=== PATIENT | male | born 1955 | race Caucasian/White ===

== ENCOUNTER 2023-10-23 08:45 | Inpatient (IN) | payer MEDICARE, MEDICAID ==
[~2023-10-23] VITALS: Ht 190.5 cm; Wt 103.6 kg
[~2023-10-23 08:45] MED LIST: AZIL1TAB2 PO; GEMF600T89 PO; HYDR-3972 PO; NEBI20TA4 PO; NIFE90TA61 PO
[2023-11-03 14:02] LABS: BASOPHILS % (AUTO) 0.6 % (0-1); EOSINOPHILS # (AUTO) 0.2 X10'3 (0-0.9); EOSINOPHILS % (AUTO) 1.8 % (0-6); LYMPHOCYTES # (AUTO) 1.4 X10'3 (1.1-4.8); LYMPHOCYTES % (AUTO) 16.6 % (21-51); MEAN CORPUSCULAR HEMOGLOBIN 27.3 PG (27.0-31.0); MEAN CORPUSCULAR HGB CONC 32.9 g/dL (33.0-36.5); MONOCYTES # (AUTO) 0.7 X10'3 (0-0.9); MONOCYTES % (AUTO) 8.9 % (2-12); NEUTROPHILS % (AUTO) 72.1 % (42-75); PRE OP HEMATOCRIT 49.2 % (42.0-52.0); PRE OP HEMOGLOBIN 16.2 g/dL (14.0-17.9); PRE OP PLATELET COUNT 364 X10'3 (140-440); PRE OP WHITE BLOOD COUNT 8.3 10'3 (4.8-10.8); RED BLOOD COUNT 5.93 X10'6 (4.70-6.10); RED CELL DISTRIBUTION WIDTH 15.1 % (11.5-14.5)
[2023-11-03] MEDS ORDERED: ALLO100T PO (14:06)
[2023-11-03] MEDS ORDERED: ADV50500 IH (14:06)
[2023-11-03] MEDS ORDERED: EMPA25TA PO (14:06)
[2023-11-03] MEDS ORDERED: [UNRECOGNIZED DRUG - OTHER] PO (14:06)
[2023-11-03 14:16] LABS: ALBUMIN 4.1 G/DL (3.4-5.0); ALKALINE PHOSPHATASE 154 IU/L (46-116); BLOOD UREA NITROGEN 32 MG/DL (7-18); BUN/CREATININE RATIO 35.6 (10.0-20.0); CALCIUM 9.3 MG/DL (8.5-10.1); CHLORIDE 104 MMOL/L (99-107); PRE OP ALT 35 U/L (30-65); PRE OP ANION GAP 8 (8-16); PRE OP AST 18 U/L (10-37); PRE OP BILIRUB, TOTAL 0.8 MG/DL (0.0-1.0); PRE OP GLUCOSE 133 MG/DL (70-104); PRE OP POTASSIUM 3.7 MMOL/L (3.4-5.1); PRE OP SODIUM 141 MMOL/L (135-145); TOTAL CARBON DIOXIDE 28.8 MMOL/L (24-32); TOTAL PROTEIN 8.1 G/DL (6.4-8.2); eGFR 84 ML/MIN
[2023-11-16] MEDS ORDERED: FEXO-310 PO (11:28)
[2023-11-16] MEDS ORDERED: ATOR10TA70 PO (11:28)
[2023-11-16] MEDS ORDERED: TIZA4CAP6 PO (11:28)
[2023-11-16] MEDS: DOCUMENT DATE & TIME OF BETA-BLOCKER PO ONE (21:00)
[2023-11-17] VITALS (36 sets, daily range): BP systolic 103–135; BP diastolic 58–80; PULSE 63–79; RESP 13–22; TEMP 97.1–97.9; O2SAT 91–98
[2023-11-17] MEDS: cefazolin 2gm/D5W 100mL 100 ML IV ONE (05:30)
[2023-11-17] MEDS: famotidine 20mg tablet PO ONE (08:40)
[2023-11-17] MEDS: tranexamic acid 650mg tablet PO ONE (08:41)
[2023-11-17] MEDS: vancomycin/NS 1 GM in NS 250 ML IV ONE (08:42)
[2023-11-17] MEDS: ringers solution, lacted 1,000 ML IV SCH ×2 (08:42→20:03)
[2023-11-17] MEDS: ROPIVAcaine 0.5% (5mg/ml) 30ml vial ONE (12:32)
[2023-11-17] MEDS: ketorolac trometh. 30mg/ml inj. ONE (12:32)
[2023-11-17] MEDS: HYDROcodone/acetaminophen 10/325mg tab PO ONE (12:49)
[2023-11-17] MEDS ORDERED: fentaNYL/PF 50MCG/1 ML 2ML syringe ONE ×3 (13:34→15:13)
[2023-11-17] MEDS ORDERED: midazolam 1 mg/ML 2ml injection ONE (13:35)
[2023-11-17] MEDS ORDERED: propofol inj 20 ML IV ONE (13:43)
[2023-11-17] MEDS ORDERED: LIDOcaine 2% (20mg/ml) 5ml vial ONE (13:43)
[2023-11-17] MEDS ORDERED: ondansetron/PF 4mg/2ml inj ONE (14:12)
[2023-11-17] MEDS ORDERED: acetaminophen 1,000mg/100ml IV 100 ML IV ONE (14:14)
[2023-11-17] MEDS ORDERED: labetalol 20mg/4ml (5mg/ml) syringe IV PRN (14:40)
[2023-11-17] MEDS ORDERED: fentaNYL/PF 50MCG/1 ML 2ML syringe IV PRN (14:40)
[2023-11-17] MEDS ORDERED: hydrALAZINE 20mg/ml inj. IV PRN (14:40)
[2023-11-17] MEDS ORDERED: ondansetron/PF 4mg/2ml inj IV PRN ×2 (14:40→15:40)
[2023-11-17] MEDS ORDERED: morphine 2 MG/ML inj. syringe IV PRN (14:40)
[2023-11-17] MEDS: BUPIVAcaine/PF 2.5 mg/ml (0.25%) 30ml vial IJ ONE (14:48)
[2023-11-17] MEDS ORDERED: MIDAZolam 1 MG/ML 5ML VIAL ONE (15:13)
[2023-11-17] MEDS ORDERED: magnesium hydroxide 30ml (MOM) UD suspension PO PRN (15:40)
[2023-11-17] MEDS ORDERED: diphenhydrAMINE 25mg capsule PO PRN (15:40)
[2023-11-17] MEDS ORDERED: bisacodyl 10mg suppository rectal RC PRN (15:40)
[2023-11-17] MEDS ORDERED: acetaminophen 325mg tablet PO PRN (15:40)
[2023-11-17] MEDS ORDERED: ceFAZolin/D5W- 1GM premix 50 ML IV SCH (16:00)
[2023-11-17] MEDS: morphine 4 MG/ML inj SYRINge IV PRN (16:05)
[2023-11-17] MEDS: fentaNYL/PF 50MCG/1 ML 2ML syringe IV PRN (16:30)
[2023-11-17] MEDS: ROPIVAcaine 0.2%/PF PUMP/bolus 545 ML INTERSCALE SCH (16:32)
[2023-11-17] MEDS: ROPIVAcaine 0.2% (10 MG/5 ML) BOLUS INJECTION INTERSCALE PRN (16:32)
[2023-11-17] MEDS ORDERED: ROPIVAcaine 0.5% (5mg/ml) 30ml vial ONE ×2 (16:45)
[2023-11-17] MEDS: oxyCODONE IR 5mg (immed. release) tablet PO PRN (17:25)
[2023-11-17] MEDS ORDERED: HYDROcodone/acetaminophen 10/325mg tab PO PRN (18:50)
[2023-11-17] MEDS: ceFAZolin/D5W- 1GM premix 50 ML IV SCH (19:19)
[2023-11-17] MEDS: budesonide 0.5mg/2ml UD nebule IH SCH (20:00)
[2023-11-17] MEDS: albuterol 2.5 MG/3 ML nebule NEB SCH (20:00)
[2023-11-17] MEDS: potassium cl 20mEq in 1/2 NS 1,000 ML IV SCH (21:01)
[2023-11-17] MEDS: NIFEdipine XL 30mg tablet PO SCH (21:02)
[2023-11-17] MEDS: gemfibrozil 600mg tablet PO SCH (21:03)
[2023-11-17] MEDS: metoprolol tartrate 50mg tablet PO SCH (21:03)
[2023-11-17] MEDS: diphenhydrAMINE 25mg capsule PO PRN (21:04)
[2023-11-17] MEDS: HYDROmorphone 1 mg/ml syringe IV PRN (21:05)
[2023-11-17] MEDS: TIZANIDINE HCL PO SCH (21:05)
[2023-11-17] MEDS: acetaminophen 325mg tablet PO SCH (21:09)
[2023-11-17] MEDS: INSULIN LISPRO 100 UNIT/ML INSULN.PEN MULTI-DOSE SQ SCH (21:13)
[2023-11-17] MEDS: sennosides 8.6mg tablet PO SCH (21:19)
[2023-11-17] MEDS: vancomycin/NS 1 GM ADD-VANTAGE 250 ML IV SCH (21:45)
[2023-11-18] VITALS (12 sets, daily range): BP systolic 117–128; BP diastolic 64–70; PULSE 57–72; RESP 14–18; TEMP 97.1–97.8; O2SAT 93–95
[2023-11-18] MEDS: oxyCODONE IR 5mg (immed. release) tablet PO PRN (01:10)
[2023-11-18] MEDS: HYDROmorphone inj. 0.5 MG/0.5 ML DISP.SYRIN IV PRN (04:19)
[2023-11-18 07:04] LABS: BASOPHILS % (AUTO) 0.1 % (0-1); EOSINOPHILS % (AUTO) 0 % (0-6); HEMATOCRIT 45.1 % (42.0-52.0); HEMOGLOBIN 14.8 g/dl (14.0-17.9); LYMPHOCYTES # (AUTO) 0.5 X10'3 (1.1-4.8); LYMPHOCYTES % (AUTO) 2.6 % (21-51); MEAN CORPUSCULAR HEMOGLOBIN 27.5 PG (27.0-31.0); MEAN CORPUSCULAR HGB CONC 32.8 g/dL (33.0-36.5); MEAN CORPUSCULAR VOLUME 83.9 FL (78-98); MEAN PLATELET VOLUME 7.4 FL (7.4-10.4); MONOCYTES # (AUTO) 0.9 X10'3 (0-0.9); MONOCYTES % (AUTO) 5.1 % (2-12); NEUTROPHILS % (AUTO) 92.2 % (42-75); PLATELET COUNT 323 X10'3 (140-440); RED BLOOD COUNT 5.37 X10'6 (4.70-6.10); RED CELL DISTRIBUTION WIDTH 15.8 % (11.5-14.5); WHITE BLOOD COUNT 17.4 X10'3 (4.5-11.0)
[2023-11-18] MEDS: atorvastatin 10mg tablet PO SCH (07:17)
[2023-11-18] MEDS: fenofibrate 145mg tablet PO SCH (07:19)
[2023-11-18] MEDS: allopurinol 300 MG tablet PO SCH (07:20)
[2023-11-18] MEDS: CHLORTHALIDONE PO SCH (07:20)
[2023-11-18] MEDS: AZILSARTAN MED PO SCH (07:20)
[2023-11-18 07:23] LABS: ANION GAP 14 (8-16); CHLORIDE 103 MMOL/L (99-107); POTASSIUM 3.4 MMOL/L (3.5-5.1); SODIUM 139 MMOL/L (135-145)
[2023-11-18] MEDS: aspirin 325mg tablet PO SCH (07:54)
[2023-11-18] MEDS ORDERED: celeCOXIB 100mg capsule PO SCH ×2 (08:00→20:00)
[2023-11-18] MEDS ORDERED: EMPAGLIFLOZIN 25 MG TABLET PO SCH (15:00)
[2023-11-19] MEDS ORDERED: acetaminophen 325mg tablet PO PRN (13:15)
== END 2023-11-18 12:56 | disposition home or self-care (01) | DRG 483 ==
LOC: PAS IN 11-17 07:31 → ORTHO 4S 11-17 19:25
PROVIDERS: ADMIT Orthopaedic Surgery; ATTEND Orthopaedic Surgery
PROC: 0RRJ0JZ Replacement of Right Shoulder Joint with Synthetic Substitute, Open Approach (ICD-10-PCS; 2023-11-17)
PROC: 0LS30ZZ Reposition Right Upper Arm Tendon, Open Approach (ICD-10-PCS; 2023-11-17)
PROC: 3E0T33Z Introduction of Anti-inflammatory into Peripheral Nerves and Plexi, Percutaneous Approach (ICD-10-PCS; 2023-11-17)
PROC: 3E0T3BZ Introduction of Anesthetic Agent into Peripheral Nerves and Plexi, Percutaneous Approach (ICD-10-PCS; principal; 2023-11-17 13:32)
DX: M19.011 Primary osteoarthritis, right shoulder (principal); M75.21 Bicipital tendinitis, right shoulder; G89.29 Other chronic pain; Z79.899 Other long term (current) drug therapy
CPT/HCPCS: 36415; 71046; 80051; 80053; 82948; 85025; 87081; 94640; 94760; 97161; 97530; A4565; A4615; A4618; A7000; C1713; C1776; G0378; J0131; J0690; J1170; J1815; J1885; J2250; J2270; J2405; J2704; J2795; J3010; J3370; J3480; J3490; J7120; Q0163